=== PATIENT | male | born 1990 | race Caucasian/White ===

== ENCOUNTER 2017-02-14 07:55 | Emergency (ER) | payer OTHER ==
--- NOTE | 2017-02-14 08:25 | ED ORDER SUMMARY ---
..... Patient: SY HOFFMANN OrderSheet [facility] VisitID: [id number] [address] [place] [address] 26y, M Registration Date/Time: 02/14/2017 ORDER SHEET Weight: 77.1 kg (stated) Allergies: Penicillin GENERAL ORDERS: MEDICATION ORDERS: Motrin PO 800 mg (NOW) (08:18 02/14/2017 Amber Rivero) (Ack 8:18 Rai R.N.) (8:25 Rai Keane.N.) IV FLUIDS: ORDER SHEET NOTES: [Electronically signed by Amrit Westbrook Dr. (08:26 02/14/2017)] [Electronically signed by Dulce Velasquez R.N. (08:50 02/14/2017)] [Electronically locked/signed by Dulce Velasquez R.N. (08:50 02/14/2017)]
--- NOTE | 2017-02-14 08:25 | ED NURSING NOTES ---
Clinical Report - Nurses [facility] [address] [place] [address] 02/14/2017 8:01 Patient: SY HOFFMANN TRIAGE Triage time 08:06. Acuity: LEVEL 4. Chief Complaint: BACK PAIN. Alert. No acute distress. ( Pt. states he took yesterday off because his back was hurting and he needs a note for work.). SEPSIS SCREEN: Sepsis Screen. Negative (no infection suspected/documented). EMMANUEL COMA SCORE: Emmanuel Coma Scale: 15- eyes open spontaneously (4); best verbal response- oriented x 4 (5); best motor response- obeys commands (6). --08:12 Dulce Velasquez R.N. 08:06 02/14/17. BP: 132/82. HR: 73. RR: 16. O2 saturation: 98%. Temp: 98.7 F. Pain level now 01/02. --08:12 Dulce Velasquez R.N. Weight: 77.1 kg stated. Height/Length: 72 inches Per Patient. BMI: 23.1. --08:08 Dulce Velasquez R.N. Medications Ibuprofen Oral, as needed. --08:10 Dulce Velasquez R.N. Allergies Penicillin. --08:11 Dulce Velasquez R.N. History Arrived by private vehicle. Historian: patient. Accompanied by friend. Primary physician (none). Onset. (6 years ago pain started from moving a tv. He said he must have slept wrong because the pain started up again when he woke.). No history of recent trauma. Treatment REIMBURSEMENT COORDINATOR: None. PAST MEDICAL HX: Immunizations: status is unknown. SOCIAL HX: Heavy tobacco smoker (cigarette)- 1 pack per day. Heavy alcohol use; consumes six beers a day. History of drug use. 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 No infectious disease exposure. ABUSE ASSESSMENT: Abuse assessment: The patient was asked "Do you feel safe in your home?" and "Has anyone hurt you or threatened to hurt you?". No report of abuse. SELF HARM ASSESSMENT: A self harm assessment was performed. The patient answered "no" to the question "Do you have thoughts of harming or killing yourself?" and "Have you recently had thoughts about harming or killing others?". NUTRITIONAL RISK ASSESSMENT: The nutritional risk assessment revealed no deficiencies. FUNCTIONAL ASSESSMENT: Functional assessment: no impairments noted. LEARNING NEEDS ASSESSMENT: The learning needs assessment revealed no barriers. --08:12 Dulce Velasquez R.N. PROBLEMS: Substance Abuse. CVA - Cerebrovascular Accident. --08:11 Dulce Velasquez R.N. ADDITIONAL SURGERIES: Hand. --08:12 Dulce Velasquez R.N. Interventions ID band on patient. Ambulatory. --08:12 Dulce Velasquez R.N. PHYSICAL ASSESSMENT Ambulatory to room. GENERAL / NEURO / PSYCH: Alert. Appears in no acute distress. RESPIRATORY: Respirations not labored. CVS: Capillary refill less than 2 seconds. --08:12 Dulce Velasquez R.N. NURSING PROGRESS NOTES Patient gowned. Head of bed elevated. Two patient identifiers checked. Call light placed in reach. Side rails up x 2. Bed placed in lowest position. Brakes of bed on. Patient ready for evaluation- chart flagged. --08:12 Dulce Velasquez R.N. 08:25 02/14/2017 Motrin PO 800 mg given. Allergies verified and confirmed 5 rights. --08:25 Dulce Velasquez R.N. DISPOSITION / DISCHARGE 08:25. Departure time: 824. Condition at departure: stable. No learning barriers present. Discharge instructions provided and reviewed with the patient. Reviewed medication(s) side effects, precautions, dosing and course information. Prescription(s) given to the patient. Reviewed referral to family practice for followup. Patient verbalized understanding. Written instructions provided in Kiswahili. The patient was discharged home and accompanied by box sealing machine catcher. He left the Emergency Department ambulatory and via private vehicle. Poultry Feed Supervisor driving. Medication list reviewed and validated. --08:50 Dulce Velasquez R.N. 08:25 02/14/17. RR: 16. Additional comments: d/c v/s deferred due to pt. in ED < 1 hour. . --08:50 Dulce Velasquez R.N. Locked/Released at 02/14/2017 8:50 by Dulce Velasquez R.N.
--- NOTE | 2017-02-14 08:25 | ED CLINICAL REPORT ---
Clinical Report - Physicians/Mid Levels [facility] [address] [place] [address] 02/14/2017 8:01 Patient: SY HOFFMANN Time Seen: 08:04; initial patient contact. Arrived- By private vehicle. Historian- patient. HISTORY OF PRESENT ILLNESS Chief Complaint: BACK PAIN. Modifying factors- worsened by bending over and lifting. Not relieved by anything. It is described as being mild and in the area of the left lower lumbar spine, lower lumbar spine and right lower lumbar spine. The quality is noted to be aching and similar to prior episodes. No radiation. Onset- several years ago and it is still present (worse since 3 days ago). It was gradual in onset and has been waxing/waning. No bladder dysfunction, bowel dysfunction, sensory loss or motor loss. Patient denies an injury but injury to the head or neck. Similar symptoms previously: Many times. Recent medical care: Not recently seen/assessed. REVIEW OF SYSTEMS No difficulty with urination, numbness or weakness. No difficulty walking. All systems otherwise negative, except as recorded above. PAST HISTORY Substance Abuse. CVA - Cerebrovascular Accident. SURGERIES: Hand. SOCIAL HISTORY Current every day smoker. Heavy alcohol use. 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 ADDITIONAL NOTES The nursing notes have been reviewed. PHYSICAL EXAM Vital Signs: 02/14/2017 08:06 BP: 132/82. HR: 73. RR: 16. O2 saturation: 98%. Temp: 98.7 F. Have been reviewed as normal. Appearance: Alert. No acute distress. Back: Mild muscle spasm of the right and left posterior back. Mild soft tissue tenderness in the right lower and left lower lumbar area. No vertebral point tenderness or limitation in ROM. Skin: Skin warm and dry. Normal skin color. Neuro: Oriented X 3. Mood/affect normal. No motor deficit. No sensory deficit. Straight leg raising: negative on the right and negative on the left. Reflex exam: right patellar 2+, left patellar 2+, right Achilles 2+ and left Achilles 2+. PROGRESS AND PROCEDURES Disposition: Discharged home in good condition. Condition: good. CLINICAL IMPRESSION Acute lumbar strain. INSTRUCTIONS Return to work today. Your Current Medications: STOP TAKING THE FOLLOWING MEDICATIONS: Ibuprofen Oral : prn. Prescription Medications: Diclofenac 50 mg tablets: take 1 tablet orally every 8 hours as needed for pain or stiffness. Dispense thirty (30). No refill. Follow-up: Follow up with your doctor in about two days if not better. Screening today revealed the patient's blood pressure to be in the pre-hypertensive range. (Electronically signed by Amrit Westbrook Dr. 02/14/2017 8:26)
--- NOTE | 2017-02-14 08:25 | ED NURSING NOTES ---
Clinical Report - Nurses [facility] [address] [place] [address] 02/14/2017 8:01 Patient: SY HOFFMANN TRIAGE Triage time 08:06. Acuity: LEVEL 4. Chief Complaint: BACK PAIN. Alert. No acute distress. ( Pt. states he took yesterday off because his back was hurting and he needs a note for work.). SEPSIS SCREEN: Sepsis Screen. Negative (no infection suspected/documented). EMMANUEL COMA SCORE: Emmanuel Coma Scale: 15- eyes open spontaneously (4); best verbal response- oriented x 4 (5); best motor response- obeys commands (6). --08:12 Dulce Velasquez R.N. 08:06 02/14/17. BP: 132/82. HR: 73. RR: 16. O2 saturation: 98%. Temp: 98.7 F. Pain level now 01/02. --08:12 Dulce Velasquez R.N. Weight: 77.1 kg stated. Height/Length: 72 inches Per Patient. BMI: 23.1. --08:08 Dulce Velasquez R.N. Medications Ibuprofen Oral, as needed. --08:10 Dulce Velasquez R.N. Allergies Penicillin. --08:11 Dulce Velasquez R.N. History Arrived by private vehicle. Historian: patient. Accompanied by friend. Primary physician (none). Onset. (6 years ago pain started from moving a tv. He said he must have slept wrong because the pain started up again when he woke.). No history of recent trauma. Treatment MANAGER AEROSPACE: None. PAST MEDICAL HX: Immunizations: status is unknown. SOCIAL HX: Heavy tobacco smoker (cigarette)- 1 pack per day. Heavy alcohol use; consumes six beers a day. History of drug use. 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 No infectious disease exposure. ABUSE ASSESSMENT: Abuse assessment: The patient was asked "Do you feel safe in your home?" and "Has anyone hurt you or threatened to hurt you?". No report of abuse. SELF HARM ASSESSMENT: A self harm assessment was performed. The patient answered "no" to the question "Do you have thoughts of harming or killing yourself?" and "Have you recently had thoughts about harming or killing others?". NUTRITIONAL RISK ASSESSMENT: The nutritional risk assessment revealed no deficiencies. FUNCTIONAL ASSESSMENT: Functional assessment: no impairments noted. LEARNING NEEDS ASSESSMENT: The learning needs assessment revealed no barriers. --08:12 Dulce Velasquez R.N. PROBLEMS: Substance Abuse. CVA - Cerebrovascular Accident. --08:11 Dulce Velasquez R.N. ADDITIONAL SURGERIES: Hand. --08:12 Dulce Velasquez R.N. Interventions ID band on patient. Ambulatory. --08:12 Dulce Velasquez R.N. PHYSICAL ASSESSMENT Ambulatory to room. GENERAL / NEURO / PSYCH: Alert. Appears in no acute distress. RESPIRATORY: Respirations not labored. CVS: Capillary refill less than 2 seconds. --08:12 Dulce Velasquez R.N. NURSING PROGRESS NOTES Patient gowned. Head of bed elevated. Two patient identifiers checked. Call light placed in reach. Side rails up x 2. Bed placed in lowest position. Brakes of bed on. Patient ready for evaluation- chart flagged. --08:12 Dulce Velasquez R.N. 08:25 02/14/2017 Motrin PO 800 mg given. Allergies verified and confirmed 5 rights. --08:25 Dulce Velasquez R.N. DISPOSITION / DISCHARGE 08:25. Departure time: 824. Condition at departure: stable. No learning barriers present. Discharge instructions provided and reviewed with the patient. Reviewed medication(s) side effects, precautions, dosing and course information. Prescription(s) given to the patient. Reviewed referral to family practice for followup. Patient verbalized understanding. Written instructions provided in Kiswahili. The patient was discharged home and accompanied by field identification specialist. He left the Emergency Department ambulatory and via private vehicle. Mine Inspector Federal driving. Medication list reviewed and validated. --08:50 Dulce Velasquez R.N. 08:25 02/14/17. RR: 16. Additional comments: d/c v/s deferred due to pt. in ED < 1 hour. . --08:50 Dulce Velasquez R.N. Locked/Released at 02/14/2017 8:50 by Dulce Velasquez R.N.
--- NOTE | 2017-02-14 08:25 | ED ORDER SUMMARY ---
..... Patient: SY HOFFMANN OrderSheet [facility] VisitID: [id number] [address] [place] [address] 26y, M Registration Date/Time: 02/14/2017 ORDER SHEET Weight: 77.1 kg (stated) Allergies: Penicillin GENERAL ORDERS: MEDICATION ORDERS: Motrin PO 800 mg (NOW) (08:18 02/14/2017 Amber Rivero) (Ack 8:18 Rai R.N.) (8:25 Rai Keane.N.) IV FLUIDS: ORDER SHEET NOTES: [Electronically signed by Amrit Westbrook Dr. (08:26 02/14/2017)] [Electronically signed by Dulce Velasquez R.N. (08:50 02/14/2017)] [Electronically locked/signed by Dulce Velasquez R.N. (08:50 02/14/2017)]
--- NOTE | 2017-02-14 08:25 | ED CLINICAL REPORT ---
Clinical Report - Physicians/Mid Levels [facility] [address] [place] [address] 02/14/2017 8:01 Patient: SY HOFFMANN Time Seen: 08:04; initial patient contact. Arrived- By private vehicle. Historian- patient. HISTORY OF PRESENT ILLNESS Chief Complaint: BACK PAIN. Modifying factors- worsened by bending over and lifting. Not relieved by anything. It is described as being mild and in the area of the left lower lumbar spine, lower lumbar spine and right lower lumbar spine. The quality is noted to be aching and similar to prior episodes. No radiation. Onset- several years ago and it is still present (worse since 3 days ago). It was gradual in onset and has been waxing/waning. No bladder dysfunction, bowel dysfunction, sensory loss or motor loss. Patient denies an injury but injury to the head or neck. Similar symptoms previously: Many times. Recent medical care: Not recently seen/assessed. REVIEW OF SYSTEMS No difficulty with urination, numbness or weakness. No difficulty walking. All systems otherwise negative, except as recorded above. PAST HISTORY Substance Abuse. CVA - Cerebrovascular Accident. SURGERIES: Hand. SOCIAL HISTORY Current every day smoker. Heavy alcohol use. 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 ADDITIONAL NOTES The nursing notes have been reviewed. PHYSICAL EXAM Vital Signs: 02/14/2017 08:06 BP: 132/82. HR: 73. RR: 16. O2 saturation: 98%. Temp: 98.7 F. Have been reviewed as normal. Appearance: Alert. No acute distress. Back: Mild muscle spasm of the right and left posterior back. Mild soft tissue tenderness in the right lower and left lower lumbar area. No vertebral point tenderness or limitation in ROM. Skin: Skin warm and dry. Normal skin color. Neuro: Oriented X 3. Mood/affect normal. No motor deficit. No sensory deficit. Straight leg raising: negative on the right and negative on the left. Reflex exam: right patellar 2+, left patellar 2+, right Achilles 2+ and left Achilles 2+. PROGRESS AND PROCEDURES Disposition: Discharged home in good condition. Condition: good. CLINICAL IMPRESSION Acute lumbar strain. INSTRUCTIONS Return to work today. Your Current Medications: STOP TAKING THE FOLLOWING MEDICATIONS: Ibuprofen Oral : prn. Prescription Medications: Diclofenac 50 mg tablets: take 1 tablet orally every 8 hours as needed for pain or stiffness. Dispense thirty (30). No refill. Follow-up: Follow up with your doctor in about two days if not better. Screening today revealed the patient's blood pressure to be in the pre-hypertensive range. (Electronically signed by Amrit Westbrook Dr. 02/14/2017 8:26)
--- NOTE | 2017-02-14 08:51 | ED MED RECONCILIATION SUMMARY ---
Patient: SY HOFFMANN Medication Reconciliation Report [facility] VisitID: [id number] [address] [place] [address] 26y, M Registration Date/Time: 02/14/2017 Weight: 77.1 kg Height/Length: 72 in. BMI: 23.1 ALLERGIES: Penicillin The patient's Home Medications are listed below: STOP TAKING THE FOLLOWING MEDICATIONS: Ibuprofen Oral The source(s) of the original Home Medication information: Not obtained. The following Medications were given to the patient in the Emergency Department: Motrin [PO] PO 800 mg, administered: 02/14/2017 8:25:00 AM The following Medications were prescribed to the patient: Diclofenac 50 mg tablets: take 1 tablet orally every 8 hours as needed for pain or stiffness. Dispense thirty (30). No refill. -- Amrit Westbrook Dr.
--- NOTE | 2017-02-14 08:51 | ED DISCHARGE INSTRUCTIONS ---
Patient: SY HOFFMANN General Instructions [facility] VisitID: [id number] [place] [address] 26y, M Registration Date/Time: 02/14/2017 Acute lumbar strain. INSTRUCTIONS Return to work today. Your Current Medications: STOP TAKING THE FOLLOWING MEDICATIONS: Ibuprofen Oral : prn. Prescription Medications: Diclofenac 50 mg tablets: take 1 tablet orally every 8 hours as needed for pain or stiffness. Dispense thirty (30). No refill. Follow-up: Follow up with your doctor in about two days if not better. Screening today revealed the patient's blood pressure to be in the pre-hypertensive range. ADDITIONAL INFORMATION Back Pain [Acute Or Chronic] Back pain is usually caused by an injury to the muscles or ligaments of the spine. Sometimes the disks that separate each bone in the spine may bulge and cause pain by pressing on a nearby nerve. Back pain may also appear after a sudden twisting/bending force (such as in a car accident), after a simple awkward movement, or lifting something heavy with poor body positioning. In either case, muscle spasm is often present and adds to the pain. Acute back pain usually gets better in one to two weeks. Back pain related to disk disease, arthritis in the spinal joints or spinal stenosis (narrowing of the spinal canal) can become chronic and last for months or years. Unless you had a physical injury (for example, a car accident or fall) X-rays are usually not ordered for the initial evaluation of back pain. If pain continues and does not respond to medical treatment, x-rays and other tests may be performed at a later time. Home Care: You may need to stay in bed the first few days. But, as soon as possible, begin sitting or walking to avoid problems with prolonged bed rest (muscle weakness, worsening back stiffness and pain, blood clots in the legs). When in bed, try to find a position of comfort. A firm mattress is best. Try lying flat on your back with pillows under your knees. You can also try lying on your side with your knees bent up towards your chest and a pillow between your knees. Avoid prolonged sitting. This puts more stress on the lower back than standing or walking. During the first two days after injury, apply an ICE PACK to the painful area for 20 minutes every 2-4 hours. This will reduce swelling and pain. HEAT (hot shower, hot bath or heating pad) works well for muscle spasm. You can start with ice, then switch to heat after two days. Some patients feel best alternating ice and heat treatments. Use the one method that feels the best to you. You may use acetaminophen (Tylenol) or ibuprofen (Motrin, Advil) to control pain, unless another pain medicine was prescribed. [NOTE: If you have chronic liver or kidney disease or ever had a stomach ulcer or GI bleeding, talk with your doctor before using these medicines.] Be aware of safe lifting methods and do not lift anything over 15 pounds until all the pain is gone. Follow Up with your doctor or this facility if your symptoms do not start to improve after one week. Physical therapy may be needed. [NOTE: If X-rays were taken, they will be reviewed by a radiologist. You will be notified of any new findings that may affect your care.] Get Prompt Medical Attention if any of the following occur: Pain becomes worse or spreads to your legs Weakness or numbness in one or both legs Loss of bowel or bladder control Numbness in the groin or genital area You have been given the following additional information: Back Pain (Acute Or Chronic) Return to work today. (Electronically signed by Amrit Westbrook Dr. 02/14/2017 8:26)
--- NOTE | 2017-02-14 08:51 | ED MAR SUMMARY ---
..... Medication Administration Record [address] [place] [address] Patient: SY HOFFMANN Visit ID: [id number] 26y, M Weight: 77.1 kg Height/Length: 72 in BMI: 23.1 ALLERGIES: Penicillin Given 08:25 02/14/2017 Dulce Velasquez R.N. Medication Administered: MOTRIN [PO], Dose: 800 mg PO. Medication Ordered: Motrin PO 800 mg (NOW).
--- NOTE | 2017-02-14 08:51 | ED MAR SUMMARY ---
..... Medication Administration Record [facility] [address] [place] [address] Patient: SY HOFFMANN Visit ID: [id number] 26y, M Weight: 77.1 kg Height/Length: 72 in BMI: 23.1 ALLERGIES: Penicillin Given 08:25 02/14/2017 Dulce Velasquez R.N. Medication Administered: MOTRIN [PO], Dose: 800 mg PO. Medication Ordered: Motrin PO 800 mg (NOW).
--- NOTE | 2017-02-14 08:51 | ED MED RECONCILIATION SUMMARY ---
Patient: SY HOFFMANN Medication Reconciliation Report [facility] VisitID: [id number] [address] [place] [address] 26y, M Registration Date/Time: 02/14/2017 Weight: 77.1 kg Height/Length: 72 in. BMI: 23.1 ALLERGIES: Penicillin The patient's Home Medications are listed below: STOP TAKING THE FOLLOWING MEDICATIONS: Ibuprofen Oral The source(s) of the original Home Medication information: Not obtained. The following Medications were given to the patient in the Emergency Department: Motrin [PO] PO 800 mg, administered: 02/14/2017 8:25:00 AM The following Medications were prescribed to the patient: Diclofenac 50 mg tablets: take 1 tablet orally every 8 hours as needed for pain or stiffness. Dispense thirty (30). No refill. -- Amrit Westbrook Dr.
== END 2017-02-14 08:25 | disposition home or self-care (01) ==
LOC: ED SRH 07:55
DX: S39.012A Strain of muscle, fascia and tendon of lower back, initial encounter (principal); X50.1XXA Overexertion from prolonged static or awkward postures, initial encounter; Y93.9 Activity, unspecified; Y99.9 Unspecified external cause status; Y92.9 Unspecified place or not applicable; F17.200 Nicotine dependence, unspecified, uncomplicated; Z86.73 Personal history of transient ischemic attack (TIA), and cerebral infarction without residual deficits

== ENCOUNTER 2017-03-20 20:09 | Emergency (ER) | payer OTHER ==
--- NOTE | 2017-03-20 21:17 | ED CLINICAL REPORT ---
Clinical Report - Physicians/Mid Levels [facility] [address] [place] [address] 03/20/2017 20:12 Patient: SY HOFFMANN Time Seen: 20:39 Mar 20 2017. Arrived- By private vehicle. Historian- patient and family. HISTORY OF PRESENT ILLNESS Chief Complaint: VOMITING and DIARRHEA. This started just prior to arrival and is still present. No recent travel. No diarrhea, bloody stools, history of possible bad food exposure, known contact with a sick individual or change in routine. The illness is described as mild. (patient reports diarrhea over the last 3 days, only minor episodes of diarrhea this morning. Denies any abdominal pain. Denies any fevers. Denies sick contacts. Denies any recent antibiotics. Denies any foreign travel.). REVIEW OF SYSTEMS No fever, muscle aches, difficulty with urination, cough or chest pain. No difficulty breathing. All systems otherwise negative, except as recorded above. SOCIAL HISTORY Smoker- current status unknown. Alcohol use. No drug use. PHYSICAL EXAM Appearance: Alert. No acute distress. Eyes: Eyes normal inspection. Neck: Normal inspection. CVS: Normal heart rate and rhythm. Pulses normal. Respiratory: No respiratory distress. No accessory muscle use or decreased air movement. Back: Normal inspection. No CVA tenderness. Skin: Skin warm. Neuro: Oriented X 3. No motor deficit. LABS, X-RAYS, AND EKG Laboratory Tests: CBC w Diff: (RALPH: 03/20/2017 20:55) ( MsgRcvd 03/20/2017 21:03) Final results Test Result Flag Units (Reference) WHITE BLOOD COUNT 8.9 K/uL (4.5-11.5) RED BLOOD COUNT 4.98 M/uL (4.50-5.90) HEMOGLOBIN 15.0 gm/dL (13.5-17.5) HEMATOCRIT 44.4 % (41.0-53.0) MEAN CELL VOLUME 89 fL (80-100) MEAN CORPUSCULAR HGB 30 pg (26-34) MEAN CORPUSCULAR HGB CONC 34 g/dL (31-37) RED CELL DISTRIBUTION WIDTH 12.8 % (11.6-14.8) PLATELET COUNT 259 K/uL (150-400) NEUTROPHIL % 60.6 % (50-75) LYMPH % 27.9 % (25-40) MONO % 9.0 % (3-14) EOSINOPHIL % 2.2 % (0-4) BASOPHIL % 0.3 % (0-2) CMP: (RALPH: 03/20/2017 20:55) ( MsgRcvd 03/20/2017 21:13) Final results Test Result Flag Units (Reference) GLUCOSE 99 mg/dL (70-110) BUN 14 mg/dL (7-18) CREATININE 1.0 mg/dL (0.6-1.3) Estimated GFR >60 mL/min Estimated GFR- >60 mL/min Note: Persistent reduction over 3 months in eGFR<60 mL/min/1.73 m2 defines CKD. Patients with eGFR values>=60 mL/min/1.73 m2 may also have CKD if evidence ofpersistent proteinuria. Additional information may be foundat www.kidney.org. SODIUM 141 mmol/L (136-145) POTASSIUM 3.7 mmol/L (3.5-5.1) CHLORIDE 105 mmol/L (98-107) CARBON DIOXIDE 27 mmol/L (21-32) CALCIUM 8.9 mg/dL (8.5-10.1) TOTAL PROTEIN 7.2 g/dL (6.4-8.2) ALBUMIN 4.0 g/dL (3.3-5.0) BILIRUBIN, TOTAL 0.3 mg/dL (0.0-1.0) ALKALINE PHOSPHATASE 78 U/L (46-116) AST (SGOT) 45 H U/L (15-37) ALT (SGPT) 39 U/L (12-78) . PROGRESS AND PROCEDURES Course of Care: patient in the emergency department with no pain. Euvolemic appearing. No emesis or diarrhea. Abdomen is soft nontender. No signs of electrolyte his balance. Patient is stable, and can follow up outpatient. 03/20/2017 20:22 BP: 132/72. HR: 90. RR: 18. O2 saturation: 98%. Temp: 98.3 F. Pain level now: 0/10. Patient is stable. Symptoms better. Patient/family counseled. Differential Diagnosis: I considered biliary colic, hepatitis, pancreatitis, splenic injury, splenic rupture, intraabdominal abscess, urinary tract infection, cystitis and ovarian cyst as a possible cause of abdominal pain in this patient. Disposition: Discharged. Condition: good. CLINICAL IMPRESSION Diarrhea INSTRUCTIONS Do not work today. (suspected viral etiology hydrate well YOUR Labs look great [facility] [address]: [facility] ). Prescription Medications: Zofran (orally disintegrating tablets) 4 mg: take 1 orally every 6 hours for 2 days as needed for nausea. Dispense five (5). No refill. OTC Medications: Imodium (available over the counter): take according to label instructions. Follow-up: Follow up with your doctor as needed. (Electronically signed by Betsy Wallis P.A.-C 03/20/2017 23:10)
--- NOTE | 2017-03-20 21:17 | ED CLINICAL REPORT ---
Clinical Report - Physicians/Mid Levels [facility] [address] [place] [address] 03/20/2017 20:12 Patient: SY HOFFMANN Time Seen: 20:39 Mar 20 2017. Arrived- By private vehicle. Historian- patient and family. HISTORY OF PRESENT ILLNESS Chief Complaint: VOMITING and DIARRHEA. This started just prior to arrival and is still present. No recent travel. No diarrhea, bloody stools, history of possible bad food exposure, known contact with a sick individual or change in routine. The illness is described as mild. (patient reports diarrhea over the last 3 days, only minor episodes of diarrhea this morning. Denies any abdominal pain. Denies any fevers. Denies sick contacts. Denies any recent antibiotics. Denies any foreign travel.). REVIEW OF SYSTEMS No fever, muscle aches, difficulty with urination, cough or chest pain. No difficulty breathing. All systems otherwise negative, except as recorded above. SOCIAL HISTORY Smoker- current status unknown. Alcohol use. No drug use. PHYSICAL EXAM Appearance: Alert. No acute distress. Eyes: Eyes normal inspection. Neck: Normal inspection. CVS: Normal heart rate and rhythm. Pulses normal. Respiratory: No respiratory distress. No accessory muscle use or decreased air movement. Back: Normal inspection. No CVA tenderness. Skin: Skin warm. Neuro: Oriented X 3. No motor deficit. LABS, X-RAYS, AND EKG Laboratory Tests: CBC w Diff: (RALPH: 03/20/2017 20:55) ( MsgRcvd 03/20/2017 21:03) Final results Test Result Flag Units (Reference) WHITE BLOOD COUNT 8.9 K/uL (4.5-11.5) RED BLOOD COUNT 4.98 M/uL (4.50-5.90) HEMOGLOBIN 15.0 gm/dL (13.5-17.5) HEMATOCRIT 44.4 % (41.0-53.0) MEAN CELL VOLUME 89 fL (80-100) MEAN CORPUSCULAR HGB 30 pg (26-34) MEAN CORPUSCULAR HGB CONC 34 g/dL (31-37) RED CELL DISTRIBUTION WIDTH 12.8 % (11.6-14.8) PLATELET COUNT 259 K/uL (150-400) NEUTROPHIL % 60.6 % (50-75) LYMPH % 27.9 % (25-40) MONO % 9.0 % (3-14) EOSINOPHIL % 2.2 % (0-4) BASOPHIL % 0.3 % (0-2) CMP: (RALPH: 03/20/2017 20:55) ( MsgRcvd 03/20/2017 21:13) Final results Test Result Flag Units (Reference) GLUCOSE 99 mg/dL (70-110) BUN 14 mg/dL (7-18) CREATININE 1.0 mg/dL (0.6-1.3) Estimated GFR >60 mL/min Estimated GFR- >60 mL/min Note: Persistent reduction over 3 months in eGFR<60 mL/min/1.73 m2 defines CKD. Patients with eGFR values>=60 mL/min/1.73 m2 may also have CKD if evidence ofpersistent proteinuria. Additional information may be foundat www.kidney.org. SODIUM 141 mmol/L (136-145) POTASSIUM 3.7 mmol/L (3.5-5.1) CHLORIDE 105 mmol/L (98-107) CARBON DIOXIDE 27 mmol/L (21-32) CALCIUM 8.9 mg/dL (8.5-10.1) TOTAL PROTEIN 7.2 g/dL (6.4-8.2) ALBUMIN 4.0 g/dL (3.3-5.0) BILIRUBIN, TOTAL 0.3 mg/dL (0.0-1.0) ALKALINE PHOSPHATASE 78 U/L (46-116) AST (SGOT) 45 H U/L (15-37) ALT (SGPT) 39 U/L (12-78) . PROGRESS AND PROCEDURES Course of Care: patient in the emergency department with no pain. Euvolemic appearing. No emesis or diarrhea. Abdomen is soft nontender. No signs of electrolyte his balance. Patient is stable, and can follow up outpatient. 03/20/2017 20:22 BP: 132/72. HR: 90. RR: 18. O2 saturation: 98%. Temp: 98.3 F. Pain level now: 0/10. Patient is stable. Symptoms better. Patient/family counseled. Differential Diagnosis: I considered biliary colic, hepatitis, pancreatitis, splenic injury, splenic rupture, intraabdominal abscess, urinary tract infection, cystitis and ovarian cyst as a possible cause of abdominal pain in this patient. Disposition: Discharged. Condition: good. CLINICAL IMPRESSION Diarrhea INSTRUCTIONS Do not work today. (suspected viral etiology hydrate well YOUR Labs look great [facility]: [facility] ). Prescription Medications: Zofran (orally disintegrating tablets) 4 mg: take 1 orally every 6 hours for 2 days as needed for nausea. Dispense five (5). No refill. OTC Medications: Imodium (available over the counter): take according to label instructions. Follow-up: Follow up with your doctor as needed. (Electronically signed by Betsy Wallis P.A.-C 03/20/2017 23:10)
--- NOTE | 2017-03-20 21:17 | ED NURSING NOTES ---
Clinical Report - Nurses [facility] [place] [address] 03/20/2017 20:12 Patient: SY HOFFMANN TRIAGE Chief Complaint: VOMITING and DIARRHEA. --20:25 Sheriff Thacker R.N. 20:22 03/20/17. BP: 132/72. HR: 90. RR: 18. O2 saturation: 98%. Temp: 98.3 F. Pain level now: 0/10. --20:25 Sheriff Thacker R.N. Weight: 77.1 kg. Height/Length: 72 inches. BMI: 23.1. --20:21 Sheriff Thacker R.N. Medications Ibuprofen Oral, as needed. --20:24 Sheriff Thacker R.N. Allergies Penicillin. --20:24 Sheriff Thacker R.N. History Onset. (2 days ago). SURGERY HX: ( Right hand). SOCIAL HX: Heavy tobacco smoker- less than 1 pack per day. Alcohol use; consumes beer occasionally. No drug use. FALL RISK ASSESSMENT: Fall risk assessment completed. No fall risk identified. NUTRITIONAL RISK ASSESSMENT: The nutritional risk assessment revealed no deficiencies. FUNCTIONAL ASSESSMENT: Functional assessment: no impairments noted. LEARNING NEEDS ASSESSMENT: The learning needs assessment revealed no barriers. SKIN INTEGRITY ASSESSMENT: Skin integrity risk assessment completed. No skin integrity risk identified. --20:25 Sheriff Thacker R.N. PROBLEMS: Lumbar Strain. Substance Abuse. CVA - Cerebrovascular Accident. --20:24 Sheriff Thacker R.N. PHYSICAL ASSESSMENT Ambulatory to room. Patient gowned. GENERAL / NEURO / PSYCH: Alert. Oriented X 4. Appears in no acute distress. HEENT: Mucous membranes are pink. RESPIRATORY: Respirations not labored. CVS: Capillary refill less than 2 seconds. SKIN: Skin is warm and dry. --20:25 Sheriff Thacker R.N. NURSING PROGRESS NOTES Head of bed elevated. Two patient identifiers checked. Call light placed in reach. Side rails up x 2. Bed placed in lowest position. Brakes of bed on. --20:26 Sheriff Thacker R.N. 20:59 03/20/2017 Zofran ODT (Ondansetron) PO 4 mg given. Allergies verified and confirmed 5 rights. --20:59 Sheriff Thacker R.N. DISPOSITION / DISCHARGE Condition at departure: stable. No learning barriers present. Discharge instructions provided and reviewed with the patient. Reviewed medication(s) side effects, precautions, dosing and course information. Prescription(s) given to the parent. Patient verbalized understanding. Written instructions provided in Burmese. The patient was discharged by the physician floor covering printer assistant. He was discharged home and accompanied by family. He left the Emergency Department ambulatory and via private vehicle. Family member driving. --21:32 Sheriff Thacker R.N. Locked/Released at 03/20/2017 21:32 by Sheriff Thacker R.N.
--- NOTE | 2017-03-20 21:17 | ED NURSING NOTES ---
Clinical Report - Nurses [facility] [place] [address] 03/20/2017 20:12 Patient: SY HOFFMANN TRIAGE Chief Complaint: VOMITING and DIARRHEA. --20:25 Sheriff Thacker R.N. 20:22 03/20/17. BP: 132/72. HR: 90. RR: 18. O2 saturation: 98%. Temp: 98.3 F. Pain level now: 0/10. --20:25 Sheriff Thacker R.N. Weight: 77.1 kg. Height/Length: 72 inches. BMI: 23.1. --20:21 Sheriff Thacker R.N. Medications Ibuprofen Oral, as needed. --20:24 Sheriff Thacker R.N. Allergies Penicillin. --20:24 Sheriff Thacker R.N. History Onset. (2 days ago). SURGERY HX: ( Right hand). SOCIAL HX: Heavy tobacco smoker- less than 1 pack per day. Alcohol use; consumes beer occasionally. No drug use. FALL RISK ASSESSMENT: Fall risk assessment completed. No fall risk identified. NUTRITIONAL RISK ASSESSMENT: The nutritional risk assessment revealed no deficiencies. FUNCTIONAL ASSESSMENT: Functional assessment: no impairments noted. LEARNING NEEDS ASSESSMENT: The learning needs assessment revealed no barriers. SKIN INTEGRITY ASSESSMENT: Skin integrity risk assessment completed. No skin integrity risk identified. --20:25 Sheriff Thacker R.N. PROBLEMS: Lumbar Strain. Substance Abuse. CVA - Cerebrovascular Accident. --20:24 Sheriff Thacker R.N. PHYSICAL ASSESSMENT Ambulatory to room. Patient gowned. GENERAL / NEURO / PSYCH: Alert. Oriented X 4. Appears in no acute distress. HEENT: Mucous membranes are pink. RESPIRATORY: Respirations not labored. CVS: Capillary refill less than 2 seconds. SKIN: Skin is warm and dry. --20:25 Sheriff Thacker R.N. NURSING PROGRESS NOTES Head of bed elevated. Two patient identifiers checked. Call light placed in reach. Side rails up x 2. Bed placed in lowest position. Brakes of bed on. --20:26 Sheriff Thacker R.N. 20:59 03/20/2017 Zofran ODT (Ondansetron) PO 4 mg given. Allergies verified and confirmed 5 rights. --20:59 Sheriff Thacker R.N. DISPOSITION / DISCHARGE Condition at departure: stable. No learning barriers present. Discharge instructions provided and reviewed with the patient. Reviewed medication(s) side effects, precautions, dosing and course information. Prescription(s) given to the parent. Patient verbalized understanding. Written instructions provided in Tunisian. The patient was discharged by the physician respiratory equipment assistant. He was discharged home and accompanied by family. He left the Emergency Department ambulatory and via private vehicle. Family member driving. --21:32 Sheriff Thacker R.N. Locked/Released at 03/20/2017 21:32 by Sheriff Thacker R.N.
--- NOTE | 2017-03-20 21:17 | ED ORDER SUMMARY ---
..... Patient: SY HOFFMANN OrderSheet [facility] VisitID: [id number] [address] [place] [address] 26y, M Registration Date/Time: 03/20/2017 ORDER SHEET Weight: 77.1 kg Allergies: Penicillin GENERAL ORDERS: CBC w Diff Urgent (20:42 03/20/2017 EKoroleva P.A.-C) (Ack 20:46 LMuller) CMP Urgent (20:42 03/20/2017 EKoroleva P.A.-C) (Ack 20:46 LMuller) MEDICATION ORDERS: Zofran ODT PO 4 mg (NOW) (20:50 03/20/2017 EKoroleva P.A.-C) (20:59 Crystal R.N.) IV FLUIDS: ORDER SHEET NOTES: [Electronically signed by Sheriff Eddie Thacker (21:32 03/20/2017)] [Electronically signed by Betsy Wallis P.A.-C (23:10 03/20/2017)] [Electronically locked/signed by Sheriff Eddie Thacker (21:32 03/20/2017)]
--- NOTE | 2017-03-20 21:17 | ED ORDER SUMMARY ---
..... Patient: SY HOFFMANN OrderSheet [facility] VisitID: [id number] [address] [place] [address] 26y, M Registration Date/Time: 03/20/2017 ORDER SHEET Weight: 77.1 kg Allergies: Penicillin GENERAL ORDERS: CBC w Diff Urgent (20:42 03/20/2017 EKoroleva P.A.-C) (Ack 20:46 LMuller) CMP Urgent (20:42 03/20/2017 EKoroleva P.A.-C) (Ack 20:46 LMuller) MEDICATION ORDERS: Zofran ODT PO 4 mg (NOW) (20:50 03/20/2017 EKoroleva P.A.-C) (20:59 Crystal R.N.) IV FLUIDS: ORDER SHEET NOTES: [Electronically signed by Sheriff Eddie Thacker (21:32 03/20/2017)] [Electronically signed by Betsy Wallis P.A.-C (23:10 03/20/2017)] [Electronically locked/signed by Sheriff Eddie Thacker (21:32 03/20/2017)]
--- NOTE | 2017-03-20 23:10 | ED MED RECONCILIATION SUMMARY ---
Patient: SY HOFFMANN Medication Reconciliation Report [facility] VisitID: [id number] [address] [place] [address] 26y, M Registration Date/Time: 03/20/2017 Weight: 77.1 kg Height/Length: 72 in. BMI: 23.1 ALLERGIES: Penicillin The patient's Home Medications are listed below: THE FOLLOWING MEDICATIONS NEED TO BE RECONCILED: Ibuprofen Oral The source(s) of the original Home Medication information: Not obtained. The following Medications were given to the patient in the Emergency Department: Zofran ODT [PO] PO 4 mg, administered: 03/20/2017 8:59:00 PM The following Medications were prescribed to the patient: Zofran (orally disintegrating tablets) 4 mg: take 1 orally every 6 hours for 2 days as needed for nausea. Dispense five (5). No refill. -- Betsy Wallis, P.A.-C Imodium (available over the counter): take according to label instructions. -- Betsy Wallis, P.A.-C
--- NOTE | 2017-03-20 23:10 | ED MED RECONCILIATION SUMMARY ---
Patient: SY HOFFMANN Medication Reconciliation Report [facility] VisitID: [id number] [address] [place] [address] 26y, M Registration Date/Time: 03/20/2017 Weight: 77.1 kg Height/Length: 72 in. BMI: 23.1 ALLERGIES: Penicillin The patient's Home Medications are listed below: THE FOLLOWING MEDICATIONS NEED TO BE RECONCILED: Ibuprofen Oral The source(s) of the original Home Medication information: Not obtained. The following Medications were given to the patient in the Emergency Department: Zofran ODT [PO] PO 4 mg, administered: 03/20/2017 8:59:00 PM The following Medications were prescribed to the patient: Zofran (orally disintegrating tablets) 4 mg: take 1 orally every 6 hours for 2 days as needed for nausea. Dispense five (5). No refill. -- Betsy Wallis, P.A.-C Imodium (available over the counter): take according to label instructions. -- Betsy Wallis, P.A.-C
--- NOTE | 2017-03-20 23:10 | ED MAR SUMMARY ---
..... Medication Administration [facility] [address] [place] [address] Patient: SY HOFFMANN Visit ID: [id number] 26y, M Weight: 77.1 kg Height/Length: 72 in BMI: 23.1 ALLERGIES: Penicillin Given 20:59 03/20/2017 Sheriff Thacker R.N. Medication Administered: ZOFRAN ODT [PO] (ONDANSETRON), Dose: 4 mg PO. Medication Ordered: Zofran ODT PO 4 mg (NOW).
--- NOTE | 2017-03-20 23:10 | ED DISCHARGE INSTRUCTIONS ---
Patient: SY HOFFMANN General Instructions [facility] VisitID: [id number] [place] [address] 26y, M Registration Date/Time: 03/20/2017 Diarrhea INSTRUCTIONS Do not work today. (suspected viral etiology hydrate well YOUR Labs look great chc lisa: Medical ). Prescription Medications: Zofran (orally disintegrating tablets) 4 mg: take 1 orally every 6 hours for 2 days as needed for nausea. Dispense five (5). No refill. OTC Medications: Imodium (available over the counter): take according to label instructions. Follow-up: Follow up with your doctor as needed. ADDITIONAL INFORMATION Diarrhea, Uncertain Cause (Adult, Report Pending) Diarrhea has several possible causes. Commonstomach fluis caused by a virus. Food poisoning, bacteria or parasites are other causes for diarrhea. Only diarrhea caused by bacteria or parasites requires treatment with an antibiotic. Diarrhea from a virus or food poisoning improves with simple home treatment. A stool sample is needed to make the diagnosis of an infection with bacteria or parasites. Up to three stool specimens may be required to diagnose This may take up to two days to get the result. It may be necessary to wait until the stool test is complete to make the diagnosis and select the best antibiotic to prescribe. Home Care: If symptoms are severe, rest at home for the next 24 hours or until you are feeling better. You may use acetaminophen (Tylenol) or ibuprofen (Motrin, Advil) to control fever, unless another medicine was prescribed. [NOTE: If you have chronic liver or kidney disease or ever had a stomach ulcer or GI bleeding, talk with your doctor before using these medicines.] (Aspirin should never be used in anyone under 18 years of age who is ill with a fever. It may cause severe liver damage.) Avoid tobacco, caffeine and alcohol, which may worsen your symptoms. If anti-diarrhea medicine was prescribed, take this only as directed. Sometimes anti-diarrhea medicine can make your condition worse if the cause is an infectious diarrhea. Therefore, anti-diarrhea medicine should not be taken for this condition unless advised by your doctor. During The First 12-24 Hours follow the diet below: BEVERAGES: Sport drinks like Gatorade, soft drinks without caffeine; jonathan kenton, mineral water (plain or flavored), decaffeinated tea and coffee. SOUPS: Clear broth, consomm and bouillon DESSERTS: Plain gelatin (Jell-O), popsicles and fruit juice bars. During The Next 24 Hours you may add the following to the above: Hot cereal, plain toast, bread, rolls, crackers Plain noodles, rice, mashed potatoes, chicken noodle or rice soup Unsweetened canned fruit (avoid pineapple), bananas Limit fat intake to less than 15 grams per day by avoiding margarine, butter, oils, mayonnaise, sauces, gravies, fried foods, peanut butter, meat, poultry and fish. Limit fiber; avoid raw or cooked vegetables, fresh fruits (except bananas) and bran cereals. Limit caffeine and chocolate. No spices or seasonings except salt. During The Next 24 Hours Gradually resume a normal diet, as you feel better and your symptoms lessen. Follow Up with your doctor or as advised if you are not improving over the next two days. If you were asked to bring a specimen from home, bring the sample on the day of collection. You may call in 2 days (or as directed) for the results. Get Prompt Medical Attention if any of the following occur: Increasing abdominal pain or constant lower right abdominal pain Continued vomiting (unable to keep liquids down) Frequent diarrhea (more than 5 times a day) Blood in vomit or stool (black or red color) Reduced oral intake Dark urine, reduced urine output Weakness, dizziness, fainting Drowsiness, confusion, stiff neck or seizure Fever of 100.4F (38C) oral or higher, not better with fever medication New rash Curlew Diet A bland diet is used for patients with an upset stomach. It consists of foods that are mild and easy to digest. It is better to eat small frequent meals rather than three large meals a day. BEVERAGES OK: Fruit juices, non-caffeinated teas and coffee, non-carbonated mayen AVOID: Carbonated beverage, caffeinated tea and coffee, all alcoholic beverages BREAD OK: Refined white, wheat or rye bread, cassius or soda crackers, [place] toast, plain rolls, bagels AVOID: Whole-grain bread CEREAL OK: Refined cereals: cooked or ready to eat AVOID: Whole grain cereals and granola, or those containing bran, seeds or nuts DESSERTS OK: Peanut butter and all others except those to "avoid" AVOID: Chocolate, cocoa, coconut, popcorn, nuts, seeds, jam, marmalade FRUITS OK: Canned, cooked, frozen or fresh fruits without seeds or tough skin AVOID: Olives, skin and seeds of fruit MEATS OK: All fresh or preserved meat, fish and fowl AVOID: Any that are prepared with those spices to "avoid" CHEESE & EGGS OK: Eggs, cottage cheese, cream cheese, other cheeses AVOID: All cheeses made with those spices to "avoid" POTATOES & PASTA OK: Potato, rice, macaroni, noodles, spaghetti AVOID: None SOUPS OK: All soups without heavy seasoning AVOID: Soups made with those spices to "avoid" VEGETABLES OK: Canned, cooked, fresh or frozen mildly flavored vegetables without seeds, skins or coarse fiber AVOID: Vegetables prepared with those spices to "avoid"; skin and seeds of vegetables and those with coarse fiber SPICES OK: Salt, lemon and [place] juice, vinegar, all extracts, alexa, cinnamon, thyme, mace, allspice, paprika AVOID: Raymond powder, cloves, pepper, seed spices, garlic, gravy pickles, highly seasoned salad dressings Clear Liquid Diet Clear liquids are any liquid that you can see through as well as those that are very easy to digest. This is used while the body is recovering from irritation or infection of the stomach or intestinal tract. It may also be used before special procedures or surgery. This diet is to be used no more than three days. You may include the following items. Adults Adults should drink a total of 23 quarts of liquid per day. It may be easier to drink small frequent servings rather than a few large ones. Liquids can include: Fruit juices.Strained orange juice or lemonade (no pulp), apple, grape and cranberry juice, clear fruit drinks, sports drinks Beverages.Sport drinks, sodas, mineral water (plain or flavored), tea, black coffee, liquid gelatin (add twice the recommended amount of water) Soups.Clear broth, consomm, bouillon Desserts.Plain gelatin, popsicles, fruit juice bars Children Over 2 years old The following liquids are acceptable for children over age 2: Fruit juices.Strained orange juice or lemonade (no pulp), apple, grape and cranberry juice, clear fruit drinks Beverages. Sports drinks, sodas, mineral water (plain or flavored), tea, liquid gelatin (add twice the recommended amount of water) Soups. Clear broth, consomm, bouillon Desserts. Plain gelatin, popsicles, fruit juice bars Children under 2 years old Oral rehydration fluids such are available at drug stores and most grocery stores without a prescription. You have been given the following additional information: Diarrhea, Unk Cause (Adult) Report Pendg Diet, Curlew (Adult) Diet, Clear Liquid Do not work today. (Electronically signed by Betsy Wallis P.A.-C 03/20/2017 23:10)
--- NOTE | 2017-03-20 23:10 | ED MAR SUMMARY ---
..... Medication Administration Record [facility] [address] [place] [address] Patient: SY HOFFMANN Visit ID: [id number] 26y, M Weight: 77.1 kg Height/Length: 72 in BMI: 23.1 ALLERGIES: Penicillin Given 20:59 03/20/2017 Sheriff Thacker R.N. Medication Administered: ZOFRAN ODT [PO] (ONDANSETRON), Dose: 4 mg PO. Medication Ordered: Zofran ODT PO 4 mg (NOW).
== END 2017-03-20 21:26 | disposition home or self-care (01) ==
LOC: ED SRH 20:09
DX: R19.7 Diarrhea, unspecified (principal); R11.10 Vomiting, unspecified
CPT/HCPCS: 90074; 90100; 95059

== ENCOUNTER 2017-04-04 15:15 | Emergency (ER) | payer OTHER ==
--- NOTE | 2017-04-04 15:59 | ED CLINICAL REPORT ---
Clinical Report - Physicians/Mid Levels [facility] [address] [place] [address] 04/04/2017 15:15 Patient: SY HOFFMANN Time Seen: 1535; initial patient contact, initial documentation, patient care assumed. Arrived- By private vehicle. Historian- patient and mother. HISTORY OF PRESENT ILLNESS Chief Complaint: COUGH. This started about 3 days ago and is still present. The illness is described as moderate. The patient has had thick, yellow, green sputum, a cough, chest discomfort, a sore throat and muscle aches. No fever, nasal congestion or discharge, sinus pressure or sinus drainage. No ear pain. Additional history - No known contact with a sick individual. (says he was exposed to black mold and wants to know if that caused him to be sick). Similar symptoms previously: None. Recent medical care: The patient was seen recently at another facility in the emergency department. ( Went to [facility] on 03/03 for cough, headache, st and chest pain, swabs done and chest xray, spot on xray, and given rx zpack, which he didn't get it filled today, and hasn't started yet, feels no better, no f/u, and no otc meds taken, and now here to be checked, not happy with care at [place]). REVIEW OF SYSTEMS The patient has had a headache. All systems otherwise negative, except as recorded above. PAST HISTORY See nurses notes. PROBLEMS: Substance Abuse. CVA - Cerebrovascular Accident. --15:38 Deep Boyle R.N. ADDITIONAL SURGERIES: Hand. --15:38 Deep Boyle R.N. SOCIAL HISTORY Heavy tobacco smoker. Regular alcohol use. History of drug use: marijuana. Not exposed to second-hand smoke at home. No recent travel. Is a local resident. FAMILY HISTORY Heart disease in grandparent. ADDITIONAL NOTES The nursing notes have been reviewed with agreement regarding the chief complaint, HPI, ROS, PMH and patient medications and allergies. PHYSICAL EXAM Vital Signs: 04/04/2017 15:33 BP: 142/83. HR: 72. RR: 15. O2 saturation: 99%. Temp: 98.7 F. Have been reviewed as normal and appear to be correct. Appearance: Alert. No acute distress. Eyes: Pupils equal, round and reactive to light. Eyes normal inspection. ENT: Ears normal. Nose normal. Pharynx abnormal. Uvula midline. (cobblestone pharnyx). Neck: Normal inspection. Neck supple. CVS: Normal heart rate and rhythm. Heart sounds normal. Pulses normal. Respiratory: No respiratory distress. Breath sounds abnormal. Mild bilateral rhonchi present in the bases (very very mild rhonchi, typical for heavy smoker). Back: Normal inspection. Skin: Skin warm and dry. Normal skin color. No rash. Normal skin turgor. Extremities: Extremities exhibit normal ROM. No lower extremity edema. Neuro: Oriented X 3. No motor deficit. No sensory deficit. LABS, X-RAYS, AND EKG EKG: EKG time: (1533). No acute process. No acute ischemia. Normal EKG. Rate: 76. (interpreted by Dr Westbrook and reviewed by me). The EKG appears to be a good tracing. Interpretation time: 1534. Laboratory Tests: CBC w Diff: (RALPH: 04/04/2017 15:23) ( MsgRcvd 04/04/2017 15:47) Final results Test Result Flag Units (Reference) WHITE BLOOD COUNT 8.4 K/uL (4.5-11.5) RED BLOOD COUNT 4.94 M/uL (4.50-5.90) HEMOGLOBIN 15.1 gm/dL (13.5-17.5) HEMATOCRIT 43.5 % (41.0-53.0) MEAN CELL VOLUME 88 fL (80-100) MEAN CORPUSCULAR HGB 31 pg (26-34) MEAN CORPUSCULAR HGB CONC 35 g/dL (31-37) RED CELL DISTRIBUTION WIDTH 12.9 % (11.6-14.8) PLATELET COUNT 207 K/uL (150-400) NEUTROPHIL % 65.5 % (50-75) LYMPH % 17.9 L % (25-40) MONO % 12.7 % (3-14) EOSINOPHIL % 3.6 % (0-4) BASOPHIL % 0.3 % (0-2) CMP: (RALPH: 04/04/2017 15:23) ( MsgRcvd 04/04/2017 15:52) Final results Test Result Flag Units (Reference) GLUCOSE 120 H mg/dL (70-110) BUN 11 mg/dL (7-18) CREATININE 0.9 mg/dL (0.6-1.3) Estimated GFR >60 mL/min Estimated GFR- >60 mL/min Note: Persistent reduction over 3 months in eGFR<60 mL/min/1.73 m2 defines CKD. Patients with eGFR values>=60 mL/min/1.73 m2 may also have CKD if evidence ofpersistent proteinuria. Additional information may be foundat www.kidney.org. SODIUM 141 mmol/L (136-145) POTASSIUM 3.7 mmol/L (3.5-5.1) CHLORIDE 104 mmol/L (98-107) CARBON DIOXIDE 30 mmol/L (21-32) CALCIUM 8.8 mg/dL (8.5-10.1) TOTAL PROTEIN 7.2 g/dL (6.4-8.2) ALBUMIN 3.9 g/dL (3.3-5.0) BILIRUBIN, TOTAL 0.7 mg/dL (0.0-1.0) ALKALINE PHOSPHATASE 75 U/L (46-116) AST (SGOT) 21 U/L (15-37) ALT (SGPT) 24 U/L (12-78) . PROGRESS AND PROCEDURES Course of Care: tx options discussed with doing labs, xrays, pt ok with not repeating chest xray, otc cough med, DM product for expectorant and suppressant, rx med for pain, push fluids, rest. Patient and mother counseled in person regarding the patient's stable condition, test results and diagnosis. Differential Diagnosis: Other possible considerations: viral illness, sinusitis, flu, bronchitis, pneumonia, allergies. Above considerations are based on history, physical exam, reassessment, laboratory data and EKG. Differential diagnosis was discussed with patient and patient's mother. Disposition: Discharged home in good and unchanged condition (15:59). Condition: good and stable. CLINICAL IMPRESSION Acute upper respiratory infection. No airway obstruction. INSTRUCTIONS Alternate Tylenol (Acetaminophen) and Motrin (Ibuprofen) for fever, temperature greater than 101 degrees. Take according to label instructions. Do not work today, for two days. Drink plenty of fluids for the next 24 hours until better. Do not smoke. (start taking Z-pack, over the counter cough medications, as discussed). Warnings: GENERAL WARNINGS: Return or contact your physician immediately if your condition worsens or changes unexpectedly, if not improving as expected, or if other problems arise. Specifically return if problem worsens. Prescription Medications: Ultram 50 mg tablets: take 1-2 orally every 6 hours as needed for pain. Dispense twenty (20). No refills. Substitution is permissible. Follow-up: Follow up with your doctor in about three days as needed. Call for an appointment. Summary of care provided to patient. Understanding of the discharge instructions verbalized by patient and parent. (Electronically signed by Erika Farfan A.R.N.P. 04/04/2017 21:30)
--- NOTE | 2017-04-04 15:59 | ED NURSING NOTES ---
Clinical Report - Nurses [facility] [address] [place] [address] 04/04/2017 15:15 Patient: SY HOFFMANN TRIAGE Triage time 1528. Acuity: LEVEL 3. Chief Complaint: CHEST PAIN. Alert. No acute distress. SEPSIS SCREEN: Sepsis Screen. Negative (no infection suspected/documented). LYDIA COMA SCORE: [place] Coma Scale: 15- eyes open spontaneously (4); best verbal response- oriented x 4 (5); best motor response- obeys commands (6). --15:41 Deep Boyle R.N. 15:33 04/04/17. BP: 142/83. HR: 72. RR: 15. O2 saturation: 99%. Temp: 98.7 F. Pain level now 03/04. --15:41 Deep Boyle R.N. Weight: 77.1 kg stated. Height/Length: 72 inches Per Patient. BMI: 23.1. --15:30 Deep Boyle R.N. Medications Ibuprofen Oral. --15:38 Deep Boyle R.N. Tylenol Oral. --15:38 Deep Boyle R.N. Allergies Penicillins. --15:38 Deep Boyle R.N. History Arrived by private vehicle. Historian: patient. Accompanied by family. ( Pt woke monday (April 01, 2017) with abrupt chest pain and headache. Tried ibuprofen and tylenol through the day. Monday morning, patient woke and went to [facility] ED in [place], [place]. Was discharged with a prescription for Z-Pack, didn't fill the prescription until just before coming to [facility] ED today. Hasn't begun the antibiotic course as of yet.). Onset was abrupt. Symptoms are constant and still present (3 days ago). He has had difficulty breathing. 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 PAST MEDICAL HX: No history of diabetes mellitus, hypertension, heart disease or lung disease. Immunizations not up to date. SOCIAL HX: Heavy tobacco smoker- 1 pack per day. Occasional alcohol use; consumes two beers a week. History of occasional drug use: marijuana. ( Pt states he used to be a heavy drinker, down to a few drinks a month.). FALL RISK ASSESSMENT: Fall risk assessment completed. No fall risk identified. NUTRITIONAL RISK ASSESSMENT: The nutritional risk assessment revealed no deficiencies. FUNCTIONAL ASSESSMENT: Functional assessment: no impairments noted. LEARNING NEEDS ASSESSMENT: The learning needs assessment revealed no barriers. ABUSE ASSESSMENT: Abuse assessment: The patient was asked "Do you feel safe in your home?". SKIN INTEGRITY ASSESSMENT: Skin integrity risk assessment completed. No skin integrity risk identified. --15:41 Deep Boyle R.N. PROBLEMS: Substance Abuse. CVA - Cerebrovascular Accident. --15:38 Deep Boyle R.N. ADDITIONAL SURGERIES: Hand. --15:38 Deep Boyle R.N. Interventions ID band on patient. To treatment room. --15:41 Deep Boyle R.N. PHYSICAL ASSESSMENT Ambulatory to room. GENERAL / NEURO / PSYCH: Alert. Oriented X 4. Appears in no acute distress. HEENT: Mucous membranes are pink. RESPIRATORY: Respirations not labored. Breath sounds within normal limits. CVS: Normal sinus rhythm noted. Heart sounds within normal limits. Capillary refill less than 2 seconds. GI / : Abdomen soft and nontender. EXTREMITIES: No lower extremity edema. SKIN: Skin is warm and dry. Normal skin turgor. Skin is non-tender. --15:42 Deep Boyle R.N. NURSING PROGRESS NOTES The plan of care for this patient has been created. armored cable machine operator, pulse oximeter and NIBP monitor placed on patient; monitor alarms on. Patient gowned. Reassurance given. Two patient identifiers checked. Call light placed in reach. Side rails up x 1. Bed placed in lowest position. Brakes of bed on. Patient ready for evaluation- chart flagged and CLOTH PAINTER notified. --15:43 Deep Boyle R.N. 15:28 04/04/2017 Site #1 started via IV in the left antecubital space with an 18g angiocath, with aseptic technique and good blood return; one attempt. Blood drawn: rainbow set. Labeled in the presence of the patient and sent to the lab. Saline lock flushed with saline (IV by Romi Dubose RN). --15:43 Deep Boyle R.N. EKG time: (1533). EKG was ordered, performed by a nurse and shown to the ED physician and CLOTH PAINTER. --15:46 Deep Boyle R.N. DISPOSITION / DISCHARGE 16:14 04/04/2017 Site #1 removed upon discharge. Catheter intact. Bandage applied. --16:14 Deep Boyle R.N. Departure time: 1610. Condition at departure: unchanged and stable. The goals identified in the patient's plan of care were met. No learning barriers present. Discharge instructions provided and reviewed with the patient and family. Reviewed medication(s) side effects, precautions, dosing and course information. Prescription(s) given to the patient. Reviewed referral to a primary care physician for followup. Reviewed need to stop smoking. Patient verbalized understanding. Written instructions provided in Syriac. The patient was discharged by the nurse practitioner. He was discharged home and accompanied by family. He left the Emergency Department ambulatory and via private vehicle. Family member driving. FALL RISK ASSESSMENT: Fall risk assessment completed. No fall risk identified. --16:15 Deep Boyle R.N. 16:12 04/04/17. BP: 121/61. HR: 79. RR: 13. O2 saturation: 100%. Temp: 98 F. Pain level now 6/10. --16:15 Deep Boyle R.N. Locked/Released at 04/04/2017 18:14 by Deep Boyle R.N.
--- NOTE | 2017-04-04 15:59 | ED NURSING NOTES ---
Clinical Report - Nurses [facility] [address] [place] [address] 04/04/2017 15:15 Patient: SY HOFFMANN TRIAGE Triage time 1528. Acuity: LEVEL 3. Chief Complaint: CHEST PAIN. Alert. No acute distress. SEPSIS SCREEN: Sepsis Screen. Negative (no infection suspected/documented). LYDIA COMA SCORE: [place] Coma Scale: 15- eyes open spontaneously (4); best verbal response- oriented x 4 (5); best motor response- obeys commands (6). --15:41 Deep Boyle R.N. 15:33 04/04/17. BP: 142/83. HR: 72. RR: 15. O2 saturation: 99%. Temp: 98.7 F. Pain level now 03/04. --15:41 Deep Boyle R.N. Weight: 77.1 kg stated. Height/Length: 72 inches Per Patient. BMI: 23.1. --15:30 Deep Boyle R.N. Medications Ibuprofen Oral. --15:38 Deep Boyle R.N. Tylenol Oral. --15:38 Deep Boyle R.N. Allergies Penicillins. --15:38 Deep Boyle R.N. History Arrived by private vehicle. Historian: patient. Accompanied by family. ( Pt woke monday (April 01, 2017) with abrupt chest pain and headache. Tried ibuprofen and tylenol through the day. Monday morning, patient woke and went to [facility] ED in [place], [place]. Was discharged with a prescription for Z-Pack, didn't fill the prescription until just before coming to [facility] ED today. Hasn't begun the antibiotic course as of yet.). Onset was abrupt. Symptoms are constant and still present (3 days ago). He has had difficulty breathing. 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 PAST MEDICAL HX: No history of diabetes mellitus, hypertension, heart disease or lung disease. Immunizations not up to date. SOCIAL HX: Heavy tobacco smoker- 1 pack per day. Occasional alcohol use; consumes two beers a week. History of occasional drug use: marijuana. ( Pt states he used to be a heavy drinker, down to a few drinks a month.). FALL RISK ASSESSMENT: Fall risk assessment completed. No fall risk identified. NUTRITIONAL RISK ASSESSMENT: The nutritional risk assessment revealed no deficiencies. FUNCTIONAL ASSESSMENT: Functional assessment: no impairments noted. LEARNING NEEDS ASSESSMENT: The learning needs assessment revealed no barriers. ABUSE ASSESSMENT: Abuse assessment: The patient was asked "Do you feel safe in your home?". SKIN INTEGRITY ASSESSMENT: Skin integrity risk assessment completed. No skin integrity risk identified. --15:41 Deep Boyle R.N. PROBLEMS: Substance Abuse. CVA - Cerebrovascular Accident. --15:38 Deep Boyle R.N. ADDITIONAL SURGERIES: Hand. --15:38 Deep Boyle R.N. Interventions ID band on patient. To treatment room. --15:41 Deep Boyle R.N. PHYSICAL ASSESSMENT Ambulatory to room. GENERAL / NEURO / PSYCH: Alert. Oriented X 4. Appears in no acute distress. HEENT: Mucous membranes are pink. RESPIRATORY: Respirations not labored. Breath sounds within normal limits. CVS: Normal sinus rhythm noted. Heart sounds within normal limits. Capillary refill less than 2 seconds. GI / : Abdomen soft and nontender. EXTREMITIES: No lower extremity edema. SKIN: Skin is warm and dry. Normal skin turgor. Skin is non-tender. --15:42 Deep Boyle R.N. NURSING PROGRESS NOTES The plan of care for this patient has been created. bi analyst, pulse oximeter and NIBP monitor placed on patient; monitor alarms on. Patient gowned. Reassurance given. Two patient identifiers checked. Call light placed in reach. Side rails up x 1. Bed placed in lowest position. Brakes of bed on. Patient ready for evaluation- chart flagged and AUTOMATIC OUTSOLE CUTTER notified. --15:43 Deep Boyle R.N. 15:28 04/04/2017 Site #1 started via IV in the left antecubital space with an 18g angiocath, with aseptic technique and good blood return; one attempt. Blood drawn: rainbow set. Labeled in the presence of the patient and sent to the lab. Saline lock flushed with saline (IV by Romi Dubose RN). --15:43 Deep Boyle R.N. EKG time: (1533). EKG was ordered, performed by a nurse and shown to the ED physician and AUTOMATIC OUTSOLE CUTTER. --15:46 Deep Boyle R.N. DISPOSITION / DISCHARGE 16:14 04/04/2017 Site #1 removed upon discharge. Catheter intact. Bandage applied. --16:14 Deep Boyle R.N. Departure time: 1610. Condition at departure: unchanged and stable. The goals identified in the patient's plan of care were met. No learning barriers present. Discharge instructions provided and reviewed with the patient and family. Reviewed medication(s) side effects, precautions, dosing and course information. Prescription(s) given to the patient. Reviewed referral to a primary care physician for followup. Reviewed need to stop smoking. Patient verbalized understanding. Written instructions provided in Polish. The patient was discharged by the nurse practitioner. He was discharged home and accompanied by family. He left the Emergency Department ambulatory and via private vehicle. Family member driving. FALL RISK ASSESSMENT: Fall risk assessment completed. No fall risk identified. --16:15 Deep Boyle R.N. 16:12 04/04/17. BP: 121/61. HR: 79. RR: 13. O2 saturation: 100%. Temp: 98 F. Pain level now 6/10. --16:15 Deep Boyle R.N. Locked/Released at 04/04/2017 18:14 by Deep Boyle R.N.
--- NOTE | 2017-04-04 15:59 | ED ORDER SUMMARY ---
..... Patient: SY HOFFMANN OrderSheet [facility] VisitID: [id number] [address] [place] [address] 26y, M Registration Date/Time: 04/04/2017 ORDER SHEET Weight: 77.1 kg (stated) Allergies: Penicillins GENERAL ORDERS: Senior Technical Support Engineer (Continuous) (cp) (15:33 04/04/2017 IJurca R.N. per protocol) (15:33 IJurca R.N.) CBC w Diff Urgent (15:04/04/2017 IJurca R.N. per protocol) (15:33 IJurca R.N.) CMP Urgent (15:04/04/2017 IJurca R.N. per protocol) (15:33 IJurca R.N.) EKG - ER Stat (15:04/04/2017 IJurca R.N. per protocol) (15:33 IJurca R.N.) Pulse oximeter (15:33 04/04/2017 IJurca R.N. per protocol) (15:33 IJurca R.N.) MEDICATION ORDERS: IV FLUIDS: IV Saline Lock (15:33 04/04/2017 IJurca R.N. per protocol) (Ack 15:33 IJurca R.N.) (15:43 IJurca R.N.) ORDER SHEET NOTES: [Electronically signed by Deep Boyle R.N. (18:14 04/04/2017)] [Electronically signed by Erika FarfanNKwame (21:30 04/04/2017)] [Electronically locked/signed by Deep Boyle R.N. (18:14 04/04/2017)]
--- NOTE | 2017-04-04 15:59 | ED ORDER SUMMARY ---
..... Patient: SY HOFFMANN OrderSheet [facility] VisitID: [id number] [address] [place] [address] 26y, M Registration Date/Time: 04/04/2017 ORDER SHEET Weight: 77.1 kg (stated) Allergies: Penicillins GENERAL ORDERS: Personal Security Specialist (Continuous) (cp) (15:33 04/04/2017 IJurca R.N. per protocol) (15:33 IJurca R.N.) CBC w Diff Urgent (15:04/04/2017 IJurca R.N. per protocol) (15:33 IJurca R.N.) CMP Urgent (15:04/04/2017 IJurca R.N. per protocol) (15:33 IJurca R.N.) EKG - ER Stat (15:04/04/2017 IJurca R.N. per protocol) (15:33 IJurca R.N.) Pulse oximeter (15:33 04/04/2017 IJurca R.N. per protocol) (15:33 IJurca R.N.) MEDICATION ORDERS: IV FLUIDS: IV Saline Lock (15:33 04/04/2017 IJurca R.N. per protocol) (Ack 15:33 IJurca R.N.) (15:43 IJurca R.N.) ORDER SHEET NOTES: [Electronically signed by Deep Bolye R.N. (18:14 04/04/2017)] [Electronically signed by Erika FarfanNKwame (21:30 04/04/2017)] [Electronically locked/signed by Deep Boyle R.N. (18:14 04/04/2017)]
--- NOTE | 2017-04-04 21:30 | ED MAR SUMMARY ---
..... Medication Administration Record [facility] [address], [place] [id number] Patient: SY HOFFMANN Visit ID: [id number] 26y, M Weight: 77.1 kg Height/Length: 72 in BMI: 23.1 ALLERGIES: Penicillins
--- NOTE | 2017-04-04 21:30 | ED MED RECONCILIATION SUMMARY ---
Patient: SY HOFFMANN Medication Reconciliation Report [facility] VisitID: [id number] [address] [place] [address] 26y, M Registration Date/Time: 04/04/2017 Weight: 77.1 kg Height/Length: 72 in. BMI: 23.1 ALLERGIES: Penicillins The patient's Home Medications are listed below: THE FOLLOWING MEDICATIONS NEED TO BE RECONCILED: Ibuprofen Oral Tylenol Oral The source(s) of the original Home Medication information: Not obtained. The following Medications were given to the patient in the Emergency Department: None. The following Medications were prescribed to the patient: Ultram 50 mg tablets: take 1-2 orally every 6 hours as needed for pain. Dispense twenty (20). No refills. Substitution is permissible. -- Erika Farfan A.R.N.P.
--- NOTE | 2017-04-04 21:30 | ED DISCHARGE INSTRUCTIONS ---
Patient: SY HOFFMANN General Instructions [facility] VisitID: [id number] [place] [address] 26y, M Registration Date/Time: 04/04/2017 Acute upper respiratory infection. No airway obstruction. INSTRUCTIONS Alternate Tylenol (Acetaminophen) and Motrin (Ibuprofen) for fever, temperature greater than 101 degrees. Take according to label instructions. Do not work today, for two days. Drink plenty of fluids for the next 24 hours until better. Do not smoke. (start taking Z-pack, over the counter cough medications, as discussed). Warnings: GENERAL WARNINGS: Return or contact your physician immediately if your condition worsens or changes unexpectedly, if not improving as expected, or if other problems arise. Specifically return if problem worsens. Prescription Medications: Ultram 50 mg tablets: take 1-2 orally every 6 hours as needed for pain. Dispense twenty (20). No refills. Substitution is permissible. Follow-up: Follow up with your doctor in about three days as needed. Call for an appointment. Summary of care provided to patient. Understanding of the discharge instructions verbalized by patient and parent. ADDITIONAL INFORMATION Viral Respiratory Illness [Adult] You have an Upper Respiratory Illness (URI) caused by a virus. This illness is contagious during the first few days. It is spread through the air by coughing and sneezing or by direct contact (touching the sick person and then touching your own eyes, nose or mouth). Most viral illnesses go away within 7-10 days with rest and simple home remedies. Sometimes, the illness may last for several weeks. Antibiotics will not kill a virus and are generally not prescribed for this condition. Home Care: 1) If symptoms are severe, rest at home for the first 2-3 days. When you resume activity, don't let yourself get too tired. 2) Avoid being exposed to cigarette smoke (yours or others). 3) Tylenol (acetaminophen) or ibuprofen (Advil, Motrin) will help fever, muscle aching and headache. (Persons under 18 with fever should not take aspirin since this may cause liver damage.) 4) Your appetite may be poor, so a light diet is fine. Avoid dehydration by drinking 6-8 glasses of fluids per day (water, soft drinks, juices, tea, soup). Extra fluids will help loosen secretions in the nose and lungs. 5) Jjwz-uuk-doyopub cold medicines will not shorten the length of time youre sick, but they may be helpful for the following symptoms: cough (Robitussin DM); sore throat (Chloraseptic lozenges or spray); nasal and sinus congestion (Actifed, Sudafed, Chlortrimeton). Follow Up with your doctor or as advised if you dont improve over the next week. Get Prompt Medical Attention if any of the following occur: -- Cough with lots of colored sputum (mucus) or blood in your sputum -- Chest pain, shortness of breath, wheezing or have trouble breathing -- Severe headache; face, neck or ear pain -- Fever over 100.4 F (38.0 C) for more than three days -- You cant swallow due to throat pain Fever Control (Adult) A fever is a natural reaction of the body to an illness. In most cases, the temperature itself is not harmful. It actually helps the body fight infections. A fever does not need to be treated unless you feel very uncomfortable. Home Care If you feel warm, check your temperature. If you feel very uncomfortable and your temperature is at or higher than 100.4F (38C) oral, you may take acetaminophen (Tylenol) every 4 to 6 hours. If you cant take or keep down oral medicine, ask your pharmacist for Tylenol suppositories, which you can get without a prescription. If the fever does not respond to acetaminophen within 1 hour, take ibuprofen (Advil or Motrin). If this works, keep taking the ibuprofen every 6 to 8 hours. Note: If you have chronic liver or kidney disease or ever had a stomach ulcer or GI bleeding, talk with your doctor before using these medications. If either medication alone does not keep the fever down, you may alternate the two medicines every 3 to 4 hours, only if your healthcare provider has instructed you to do so. For example, take Motrin then wait 3 hours, take Tylenol then wait 3 hours, take Motrin, and so on. Follow your healthcare providers instructions exactly. Clothing: Keep clothing light because excess body heat is lost through the skin. The fever will go up if you wear extra layers or wrap in blankets. Fluids: Fever causes the body to lose water through evaporation. Drink plenty of fluids such as water, juice, clear sodas, jonathan kenton, or lemonade. Do not use aspirin in anyone under 18 years of age who is ill with a fever. It can cause severe liver damage. Follow Up with your doctor or as advised by our staff if you do not get better after 48 hours. Get Prompt Medical Attention if any of the following occur: Fever does not get better after taking fever medication Fast or difficult breathing Earache, sinus pain, stiff or painful neck, headache, repeated diarrhea or vomiting You feel unusually irritable, drowsy, or confused A rash appears You feel weak or dizzy, or that you might faint Tramadol Hydrochloride Oral tablet What is this medicine? TRAMADOL (TRA ma dole) is a pain reliever. It is used to treat moderate to severe pain in adults. How should I use this medicine? Take this medicine by mouth with a full glass of water. Follow the directions on the prescription label. If the medicine upsets your stomach, take it with food or milk. Do not take more medicine than you are told to take. Talk to your jacker feeder regarding the use of this medicine in children. Special care may be needed. What side effects may I notice from receiving this medicine? Side effects that you should report to your doctor or health respiratory care assistant as soon as possible: allergic reactions like skin rash, itching or hives, swelling of the face, lips, or tongue breathing difficulties, wheezing confusion itching light headedness or fainting spells redness, blistering, peeling or loosening of the skin, including inside the mouth seizures Side effects that usually do not require medical attention (report to your doctor or health respiratory care assistant if they continue or are bothersome): constipation dizziness drowsiness headache nausea, vomiting What may interact with this medicine? Do not take this medicine with any of the following medications: MAOIs like Carbex, Eldepryl, Marplan, Nardil, and Parnate This medicine may also interact with the following medications: alcohol or medicines that contain alcohol antihistamines benzodiazepines bupropion carbamazepine or oxcarbazepine clozapine cyclobenzaprine digoxin furazolidone linezolid medicines for depression, anxiety, or psychotic disturbances medicines for migraine headache like almotriptan, eletriptan, frovatriptan, naratriptan, rizatriptan, sumatriptan, zolmitriptan medicines for pain like pentazocine, buprenorphine, butorphanol, meperidine, nalbuphine, and propoxyphene medicines for sleep muscle relaxants naltrexone phenobarbital phenothiazines like perphenazine, thioridazine, chlorpromazine, mesoridazine, fluphenazine, prochlorperazine, promazine, and trifluoperazine procarbazine warfarin What if I miss a dose? If you miss a dose, take it as soon as you can. If it is almost time for your next dose, take only that dose. Do not take double or extra doses. Where should I keep my medicine? Keep out of the reach of children. Store at room temperature between 15 and 30 degrees C (59 and 86 degrees F). Keep container tightly closed. Throw away any unused medicine after the expiration date. What should I tell my health care provider before I take this medicine? They need to know if you have any of these conditions: brain tumor depression drug abuse or addiction head injury if you frequently drink alcohol containing drinks kidney disease or trouble passing urine liver disease lung disease, asthma, or breathing problems seizures or epilepsy suicidal thoughts, plans, or attempt; a previous suicide attempt by you or a family member an unusual or allergic reaction to tramadol, codeine, other medicines, foods, dyes, or preservatives or trying to get breast-feeding What should I watch for while using this medicine? Tell your doctor or health respiratory care assistant if your pain does not go away, if it gets worse, or if you have new or a different type of pain. You may develop tolerance to the medicine. Tolerance means that you will need a higher dose of the medicine for pain relief. Tolerance is normal and is expected if you take this medicine for a long time. Do not suddenly stop taking your medicine because you may develop a severe reaction. Your body becomes used to the medicine. This does NOT mean you are addicted. Addiction is a behavior related to getting and using a drug for a non-medical reason. If you have pain, you have a medical reason to take pain medicine. Your doctor will tell you how much medicine to take. If your doctor wants you to stop the medicine, the dose will be slowly lowered over time to avoid any side effects. You may get drowsy or dizzy. Do not drive, use machinery, or do anything that needs mental alertness until you know how this medicine affects you. Do not stand or sit up quickly, especially if you are an older patient. This reduces the risk of dizzy or fainting spells. Alcohol can increase or decrease the effects of this medicine. Avoid alcoholic drinks. You may have constipation. Try to have a bowel movement at least every 2 to 3 days. If you do not have a bowel movement for 3 days, call your doctor or health respiratory care assistant. Your mouth may get dry. Chewing sugarless gum or sucking hard candy, and drinking plenty of water may help. Contact your doctor if the problem does not go away or is severe. You have been given the following additional information: Uri, Viral, No Abx (Adult) Fever Control (Adult) Tramadol Hydrochloride Oral tablet Do not work today, for two days. (Electronically signed by Erika Farfan A.R.N.P. 04/04/2017 21:30)
--- NOTE | 2017-04-04 21:30 | ED MAR SUMMARY ---
..... Medication Administration Record [facility] [address] [place], [place] [id number] Patient: SY HOFFMANN Visit ID: [id number] 26y, M Weight: 77.1 kg Height/Length: 72 in BMI: 23.1 ALLERGIES: Penicillins
--- NOTE | 2017-04-04 21:30 | ED MED RECONCILIATION SUMMARY ---
Patient: SY HOFFMANN Medication Reconciliation Report [facility] VisitID: [id number] [address] [place] [address] 26y, M Registration Date/Time: 04/04/2017 Weight: 77.1 kg Height/Length: 72 in. BMI: 23.1 ALLERGIES: Penicillins The patient's Home Medications are listed below: THE FOLLOWING MEDICATIONS NEED TO BE RECONCILED: Ibuprofen Oral Tylenol Oral The source(s) of the original Home Medication information: Not obtained. The following Medications were given to the patient in the Emergency Department: None. The following Medications were prescribed to the patient: Ultram 50 mg tablets: take 1-2 orally every 6 hours as needed for pain. Dispense twenty (20). No refills. Substitution is permissible. -- Erika Farfan A.R.N.P.
== END 2017-04-04 16:10 | disposition home or self-care (01) ==
LOC: ED SRH 15:15
DX: J06.9 Acute upper respiratory infection, unspecified (principal); F17.210 Nicotine dependence, cigarettes, uncomplicated; Z88.0 Allergy status to penicillin
CPT/HCPCS: 90100; 95059